=== PATIENT | female | born 1985 | race Caucasian/White ===

== ENCOUNTER 2019-02-25 15:40 | Emergency (ER) | payer BC ==
[~2019-02-25] VITALS: Ht 177.8 cm; Wt 139.5 kg
[~2019-02-25 15:40] MED LIST: CEPHALEXIN 500500 M2 PO; DILAUDID; IBUPROFEN 800800 M1 PO; NOHOMEMEDICATIONS
[2019-02-25] MEDS ORDERED: HYDROCODON-ACE1 EAC8 PO (16:29)
[2019-02-25] MEDS ORDERED: FLEXERIL PO (16:29)
[2019-02-25 16:37] VITALS: BP 159/68
== END 2019-02-25 16:38 | disposition home or self-care (01) ==
LOC: M.ERS 15:40
DX: S30.0XXA Contusion of lower back and pelvis, initial encounter (principal); F17.210 Nicotine dependence, cigarettes, uncomplicated; Z90.710 Acquired absence of both cervix and uterus; Z88.1 Allergy status to other antibiotic agents; Z88.2 Allergy status to sulfonamides; Z88.5 Allergy status to narcotic agent; W18.39XA Other fall on same level, initial encounter; Y93.89 Activity, other specified; Y92.89 Other specified places as the place of occurrence of the external cause; Y99.8 Other external cause status